=== PATIENT | male | born 1970 | race Caucasian/White ===

== ENCOUNTER 2023-12-31 08:16 | Outpatient (AMB) | payer BC, SELFPAY ==
--- NOTE | 2023-12-31 09:13 | AM.OFFWIN_ITS ---
Intake Vital Signs 12/31/23 09:21 Height 6 ft Weight 210 lb BMI 28.5 BP 122/78 Blood Pressure Location Lt brachial Position Sitting Pulse 74 Pulse Source Pulse Oximeter Temp 97.2 F Temp Source Temporal Artery Scan Pulse Oximetry (%) 97 Oxygen Delivery Method Room Air Intake Visit Reasons: [employer] sinus infection ears blocked cough Intake Note: pt is here today for sinus infection ear blocked cough started 10 days ago Patient Tobacco Use Status: Never used Tobacco Allergies No Known Allergies Allergy (Verified 12/31/23 11:30) Medication List - Last Reconciled 12/31/23 by ANGELA Caban azithromycin For 250 mg dose pack: take 500 mg today (day 1), then 250 mg for 4 days (days 2-5) PO bempedoic acid-ezetimibe 180-10 mg (Nexlizet) 1 tab PO DAILY prednisone 20 mg PO BID rosuvastatin 40 mg PO DAILY Do you need a note to return to daycare/school/sports/work: No HPI HPI Comments History of Present Illness Details Patient is a 53-year-old male in today for sick visit. Patient states for the past 10 days he has developed cough, sore throat, sinus pain, chest congestion, ear fullness. Patient denies fever, chest pain, nausea, vomiting, diarrhea. Patient has used [id number] medicine with little effect. [facility] Social History Patient Tobacco Use Status: Never used Tobacco Review of Systems Const All systems reviewed & are unremarkable except as noted in HPI and below Physical Exam Vital Signs: Last Vital Signs Temp 97.2 F 12/31/23 09:21 Pulse 74 12/31/23 09:21 BP 122/78 12/31/23 09:21 Pulse Ox 97 12/31/23 09:21 Oxygen Delivery Method Room Air 12/31/23 09:21 BMI result Body Mass Index 28.5 Const Other: Appearance: Alert.? Oriented X3.? No acute distress.? Head: Normocephalic, atraumatic, no step-offs or deformities Eyes: Pupils equal, round and reactive to light.? ENT: Pharynx erythema. TM intact and pearly burgos. + sinus tenderness. Neck: Normal inspection.? Neck supple.?Full ROM. CVS: Normal heart rate and rhythm.? Pulses normal.? Respiratory: No respiratory distress.? Breath sounds normal.? Neuro: Oriented X 3.? No motor deficit.? No sensory deficit. CN 2-12 intact Assessment & Plan Assessment & Plan (1) Sinusitis: Comment: Patient had URI swab in office. Will also give patient azithromycin and prednisone. Code(s): J32.9 - Chronic sinusitis, unspecified Qualifiers: Sinusitis location: unspecified location Chronicity: unspecified Qualified Code(s): J32.9 - Chronic sinusitis, unspecified Plan: Take your medications as prescribed. If you were prescribed antibiotics today, it is important that you take your medication to their entirety, do not skip any doses, do not finish them early. Follow-up with your primary care provider this week. Return to the emergency department with new or worsening symptoms. Such as fevers, chills, chest pain, shortness of breath, nausea, vomiting, dizziness, headache, vision changes, lethargy In case of emergency call 911 Plan Follow-up with PCP. Orders: Orders SARS-CoV2/FLU/RSV Today J06.9 - Acute upper respiratory infection, unspecified Medications: New prednisone 20 mg PO BID 10 tabs 0RF azithromycin For 250 mg dose pack: take 500 mg today (day 1), then 250 mg for 4 days (days 2-5) PO 6 tabs 0RF Coding Level of Care Code Est Pt Level 3 (40743) Diagnoses Sinusitis, unspecified chronicity, unspecified location J32.9 Sinusitis location: unspecified location Chronicity: unspecified Time Spent (min) 24
[2023-12-31 09:21] VITALS: BP 122/78; PULSE 74; TEMP 36.2; O2SAT 97; BMI 28.5
== END 2023-12-31 12:04 | disposition home or self-care (01) ==
PROVIDERS: Visit Provider Nurse Practitioner Primary Care
DX: J32.9 Chronic sinusitis, unspecified (principal)
CPT/HCPCS: 99213

== ENCOUNTER 2023-12-31 13:08 | Outpatient (REF) | payer BC, SELFPAY ==
[2023-12-31 14:08] LABS: Influenza A PCR NEGATIVE (Negative); Influenza B PCR NEGATIVE (Negative); Resp Syncy Virus RNA Qual PCR NEGATIVE (Negative); SARS COV2 PCR INHOUSE NEGATIVE (Negative)
== END 2023-12-31 13:09 | disposition home or self-care (01) ==
LOC: HO.HMGCLNP 13:08
PROVIDERS: Visit Provider Nurse Practitioner Primary Care
DX: J06.9 Acute upper respiratory infection, unspecified (principal)
CPT/HCPCS: 0241U